=== PATIENT | male | born 1995 | race Caucasian/White ===

== ENCOUNTER → 2023-07-10 | Outpatient (CLI) | payer BC ==
[~2023-07-10] MED LIST: NORCO 325 MG-51 TAB PO
== END ==
LOC: MHCPAIN 13:58
DX: M48.061 Spinal stenosis, lumbar region without neurogenic claudication (principal); M47.896 Other spondylosis, lumbar region; M79.2 Neuralgia and neuritis, unspecified
CPT/HCPCS: G0463

== ENCOUNTER → 2023-10-10 | Outpatient (CLI) | payer BC ==
[~2023-10-10] MED LIST changes: +Lidocaine PF 2% (20 MG/ML) 5 ML VIAL ONE; +Midazolam 2 MG/2 ML VIAL ONE; +fentaNYL 50 MCG/ML 2 ML VIAL ONE
== END ==
LOC: MHCPAIN 10:08
DX: M47.817 Spondylosis without myelopathy or radiculopathy, lumbosacral region (principal); M54.50 Low back pain, unspecified
CPT/HCPCS: J0665; J2250; J3010

== ENCOUNTER → 2023-10-28 | Outpatient (CLI) | payer BC ==
[~2023-10-28] MED LIST changes: -Lidocaine PF 2% (20 MG/ML) 5 ML VIAL ONE; -Midazolam 2 MG/2 ML VIAL ONE; -fentaNYL 50 MCG/ML 2 ML VIAL ONE
== END ==
LOC: MHCPAIN 16:18
DX: M47.896 Other spondylosis, lumbar region (principal); M54.50 Low back pain, unspecified; F17.210 Nicotine dependence, cigarettes, uncomplicated
CPT/HCPCS: G0463

== ENCOUNTER → 2023-11-07 | Outpatient (CLI) | payer BC | LOC: MHCPAIN 11:04 | DX: M47.817 Spondylosis without myelopathy or radiculopathy, lumbosacral region (principal); M54.50 Low back pain, unspecified ==